=== PATIENT | female | born 1995 | race American Indian/Alaskan Native ===

== ENCOUNTER 2022-06-24 13:13 | Emergency (ER) | payer MEDICAID ==
[2022-06-24 14:10] VITALS: BP 121/81
[2022-06-24] MEDS ORDERED: ONDANSETRON 4 MG/2 ML INJ IV NR (14:19)
[2022-06-24] MEDS ORDERED: SODIUM CHLORIDE 0.9% 1000 ML 1,000 ML IV ONE (14:19)
[2022-06-24 17:20] LABS: Bacteria,Urine 1+ /HPF (Negative); Mucus,Urine 3+ /HPF
[2022-06-24] MEDS ORDERED: ONDANSETRON 4 MG ODT TAB PO ONE (17:34)
[2022-06-24 17:38] LABS: Bilirubin,Urine 1+ (Negative); Blood,Urine Negative (Negative); Color,Urine Amber (Yellow); Ictotest,Urine Positive (Negative)
--- NOTE | 2022-06-24 17:48 | Emergency Department Report ---
ED HPI - General Chief complaint: Nausea/Vomiting/Diarrhea Stated complaint: 12 WEEKS/NV Time Seen by Provider: 06/24/22 14:20 Source: patient Mode of arrival: Ambulatory Limitations: No Limitations - History of Present Illness Initial comments: 27 yo black female with no pmh presents to ed for evaluation of persistent n/v. She states that she is about 12-13 weeks gestation and has been unable to tolerate any po fluids or food in the past several days. She states that she was seen at another ED a few days ago, discharged home with phenergan tablets, but has been unable to keep them down also. She denies any abdominal pain, diarrhea, vaginal bleeding or dysuria. MD Complaint: other (n/v) -: Gradual, week(s) (2) Associated symptoms: nausea/vomiting. denies: vaginal bleeding, vaginal discharge, abdominal pain, dysuria, headache, vision changes, malaise, rash, seizure, shortness of breath, syncope, weakness Vaginal bleeding: none :: Yes Number of weeks : 12 OB History - Current : hyperemesis Pre- care: none, previous ultrasound confi - Related Data Previous Rx's Medication Instructions Recorded Last Taken Type Ondansetron [Zofran Odt] 4 mg PO Q8HR PRN #12 tab.rapdis 06/24/22 Unknown Rx Promethazine HCl [Phenergan SUPPOS] 25 mg RC Q8HR PRN #15 supp 06/24/22 Unknown Rx cephALEXin [Keflex] 500 mg PO BID #14 cap 06/24/22 Unknown Rx Allergies Allergy/AdvReac Type Severity Reaction Status Date / Time No Known Allergies Allergy Verified 06/24/22 14:33 ED Review of Systems ROS: Stated complaint: 12 WEEKS/NV Other details as noted in HPI Comment: All other systems reviewed and negative Constitutional: denies: chills, fever ENT: denies: congestion Respiratory: denies: shortness of breath Cardiovascular: denies: chest pain, palpitations Gastrointestinal: nausea, vomiting, diarrhea. denies: abdominal pain, hem atemesis, melena, hematochezia Genitourinary: denies: urgency, dysuria, frequency, hematuria, discharge Musculoskeletal: denies: back pain Skin: denies: rash, lesions Neurological: denies: headache, weakness ED Past Medical Hx - Medications Home Medications: Home Medications Medication Instructions Recorded Confirmed Last Taken Type Ondansetron [Zofran Odt] 4 mg PO Q8HR PRN #12 tab.rapdis 06/24/22 Unknown Rx Promethazine HCl [Phenergan SUPPOS] 25 mg RC Q8HR PRN #15 supp 06/24/22 Unknown Rx cephALEXin [Keflex] 500 mg PO BID #14 cap 06/24/22 Unknown Rx ED Physical Exam - General Limitations: No Limitations General appearance: alert, in no apparent distress - Head Head exam: Present: atraumatic, normocephalic - Eye Eye exam: Present: normal appearance. Absent: conjunctival injection - ENT ENT exam: Present: normal exam - Neck Neck exam: Present: normal inspection. Absent: tenderness, lymphadenopathy - Respiratory Respiratory exam: Present: normal lung sounds bilaterally, chest wall tenderness. Absent: respiratory distress, wheezes, rales, rhonchi, stridor - Cardiovascular Cardiovascular Exam: Present: tachycardia, normal heart sounds - GI/Abdominal GI/Abdominal exam: Present: soft, normal bowel sounds. Absent: tenderness - Extremities Exam Extremities exam: Present: normal inspection, normal capillary refill. Absent: tenderness, pedal edema, joint swelling, calf tenderness - Back Exam Back exam: Present: normal inspection. Absent: CVA tenderness (R), CVA tenderness (L) - Neurological Exam Neurological exam: Present: alert, oriented X3, CN II-XII intact, normal gait - Psychiatric Psychiatric exam: Present: normal affect, normal mood - Skin Skin exam: Present: warm, dry, intact, normal color ED Course Vital Signs 06/24/22 14:06 Temperature 98.9 F Pulse Rate 144 H Respiratory 14 Rate Blood Pressure 121/81 [Right] O2 Sat by Pulse 98 Oximetry - Reevaluation(s) Reevaluation #1: 06/24/22 17:44 Nausea and vomiting much improved. Patient has been able to drink cranberry juice and water without vomiting. ED Medical Decision Making - EKG Data EKG shows normal: sinus rhythm Rate: tachycardia - EKG Data Interpretation: no acute changes - Medical Decision Making 27 yo black female with no pmh presents to ed for evaluation of persistent n/v. She states that she is about 12-13 weeks gestation and has been unable to tolerate any po fluids or food in the past several days. She states that she was seen at another ED a few days ago, discharged home with phenergan tablets, but has been unable to keep them down also. She denies any abdominal pain, diarrhea, vaginal bleeding or dysuria. N/v mostly resolved after medication. HR improved after IVF. Urine positive for UTI. Patient will be discharged home with 7 day coarse of keflex, zofran odt and phenergan supp to use as directed. She is advised to follow up with [facility] application packager for care and return to ED as needed. She verbalized understanding of and agreement with plan of care. Critical care attestation.: If time is entered above; I have spent that time in minutes in the direct care of this critically ill patient, excluding procedure time. ED Disposition Clinical Impression: Nausea and vomiting during prior to 22 weeks gestation UTI (urinary tract infection) Qualifiers: Urinary tract infection type: acute cystitis Hematuria presence: without hematuria Qualified Code(s): N30.00 - Acute cystitis without hematuria Disposition: HOME / SELF CARE / HOMELESS Is pt being admited?: No Does the pt Need Aspirin: No Condition: Stable Instructions: Antibiotic Medicine, Adult, [id number], Urinary Tract Infection, Adult, [id number], Morning Sickness, [id number] Additional Instructions: Take medications as prescribed. Increase intake of noncaffeinated fluids. Follow-up with OB for further evaluation and management. Return to the emergency department as needed. Prescriptions: cephALEXin [Keflex] 500 mg PO BID #14 cap Promethazine HCl [Phenergan SUPPOS] 25 mg RC Q8HR PRN #15 supp PRN Reason: Nausea And Vomiting Ondansetron [Zofran Odt] 4 mg PO Q8HR PRN #12 tab.rapdis PRN Reason: Nausea And Vomiting Referrals: JI JUAREZ MD [Primary Care Provider] - 3-5 Days Forms: Work/School Release Form(ED) Time of Disposition: 17:48
--- NOTE | 2022-06-25 11:11 | Electrocardiograph Report ---
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
== END 2022-06-24 18:48 | disposition home or self-care (01) ==
LOC: ED 13:13
DX: O21.9 Vomiting of pregnancy, unspecified (principal); O23.41 Unspecified infection of urinary tract in pregnancy, first trimester; Z3A.13 13 weeks gestation of pregnancy
CPT/HCPCS: 81001; 93005; 96361; 96374; 99283; J2405; J7030